=== PATIENT | female | born 1965 | race Caucasian/White ===

== ENCOUNTER 2018-01-24 14:29 | Inpatient (IN) ==
--- NOTE | 2018-01-24 16:37 | Internal Med History&Physical ---
<Ravin Brantley - Last Filed: 01/24/18 18:12> Date of Encounter: 01/24/18 Internal Medicine - H&P: HPI History of present illness: Ms. Lopez is a 52 year old female Internal Medicine - H&P: Meds Atenolol 02/05/15 [History] Benzonatate [Tessalon] 200 mg PO TID PRN #30 capsule 01/09/18 [Rx] GuaiFENesin ER [Mucinex] 1,200 mg PO BID #20 tbbp.12hr 01/09/18 [Rx] Levofloxacin [Levaquin] 750 mg PO DAILY #10 tablet 01/09/18 [Rx] Allergy/AdvReac Type Severity Reaction Status Date / Time No Known Allergies Allergy Verified 01/09/18 13:24 All Systems PM: A 10-system review of systems was performed and is negative for pertinent findings except as documented above in the HPI. - Constitutional Vitals: Temp Pulse Resp BP Pulse Ox 101.4 F H 100 23 136/78 94 01/24/18 17:15 01/24/18 17:15 01/24/18 17:15 01/24/18 17:15 01/24/18 17:15 - Assessment and plan (1) PNA (pneumonia) Current Visit: Yes Status: Acute Qualifiers: Pneumonia type: aspiration pneumonia Aspiration pneumonia type: unspecified Laterality: right Lung location: lower lobe of lung Qualified Code(s): J69.0 - Pneumonitis due to inhalation of food and vomit (2) HTN (hypertension) Current Visit: Yes Status: Chronic Qualifiers: Hypertension type: essential hypertension Qualified Code(s): I10 - Essential (primary) hypertension (3) Sepsis Current Visit: Yes Status: Acute Qualifiers: Sepsis type: sepsis due to unspecified organism Qualified Code(s): A41.9 - Sepsis, unspecified organism (4) Morbid obesity with BMI of 40.0-44.9, adult Current Visit: Yes Status: Chronic - Time Spent With Patient Total time spent is greater than 50% in coordination of care (as documented) at patient's floor/unit and/or counseling patient: - Attending Attestation I examined this patient and my medical decision-making was reviewed with the Resident Physician on 01/24/18. I agree with the documented findings, disposition and treatment plan as described except to the extent set forth below. Ms Lopez is 52 year old female with hx of HTN direct admit due to pneumonia. Pt aspirated popcorn about 6 weeks ago and has had 2 treatments with abx already. Pneumonia recurs. She was evaluated by pulmonary and CT of chest shows post obstructive pneumonia. She is again febrile. She has been admitted for abx and bronchoscopy. Exam alert Comfortable Mucus membranes dry Heart reg - not tachy now Lungs with bibasilar rales. No wheeze abd soft No edema Moves all extremities I/P 1. Asp pneumonia - failed 2 courses of abx. Admit. IV abx. Bronchoscopy. 2. HTN Further diagnoses and plan as above. <Sourav Puente - Last Filed: 01/24/18 22:10> Date of Encounter: 01/24/18 Time of Encounter: 18:08 Internal Medicine - H&P: HPI Chief complaint: pneumonia History of present illness: Ms. Lopez is a 52 year old female with PMHx of hypertension was admitted to the floor because of incidental finding on of post -obstructive pneumonia on her chest CT . Patient endorses it all started about 5 weeks ago i when she accidently aspirated popcorn into her airways. Patient had no symptoms for few weeks, however after that she began to have progressive increasing productive cough. Patient denies any hemoptysis associated with her cough. She denies any history of GERD or any cardiac symptoms like CHF/MT, although she did have a catheterization done in 2005 (which was normal) for her nonspecific chest pain. However, patient has never had any chest pain ever since then. Patient saw a dentist for dental abscess and was given a seven-day course of amoxicillin which helped with her cough symptoms. About 2 weeks ago the symptoms relapsed and patient went to the urgent care, had a chest x-ray which was positive for pneumonia. She was prescribed prednisone, Levaquin, Mucinex and the Tessalon Perles. Patient finished her course of Abx until last Tuesday and her symptoms subsided. However, since Tuesday patient's symptoms relapsed along with chills and shortness of breath. She also endorses having lost 15 pounds in the last 2 weeks, which she endorses due to decreased appetite. She has no family Hx of cancer. She went to her PCP recently, had a chest CT, which showed findings in the lateral basal segment right lower lobe with dense consolidation with concerns for a postobstructive pneumonia likely related to aspirate foreign body . There were also evidence of right pleural effusion. She denies any acute SO, chest pain, palpitations, or any systemic signs like diarrhea, vomiting, nausea, numbenss or tingling in her hands or legs. Past Med Surg Social Fam HX - Past Medical History Medical history: no medical history Psychiatric history: no psych history - Past Surgical History Additional surgical history: 2005 Heart blanca - Social History Smoking Status: Never smoker Smokeless Tobacco Status: No Alcohol use: none Drug use: none - Family History Father Hx Family Cardiac Disorders: Yes Hx Family Endocrine Disorder: Yes All Systems PM: A 10-system review of systems was performed and is negative for pertinent findings except as documented above in the HPI. - Constitutional Exam: General: Alert and oriented. Skin:Normal color, no rash, no lesions. HEENT:Pupils equal, round and reactive. Cardiovascular:Normal S1 & S2, no rubs, murmurs or gallops. No JVD. Pulse regular. Lungs:decreased breath sounds on the Right lung base, no rales or ronchi Abdomen:Soft, no rigidity. Tender to palpation x4 quadrants. No rebound tenderness. Normal bowel sounds x4 quadrants. Extremities:No deformity, no edema or tenderness, no joint swelling or clubbing. Neurological:Normal cognition and motor skills. Pulses:Carotid and radial pulses normal +2. Rest of the physical exam is non contributory. Internal Med - H&P Results - Labs CBC & Chem 7: 01/24/18 17:50 01/24/18 17:50 - Assessment and plan (1) Sepsis Current Visit: Yes Status: Acute Assessment and plan: - Patient met SIRS criteria during admission Temp: 101.4, HR: 100. -likely due to postobstructive pneumonia as evident on chest CT. Patient recently completed 2 rounds of antibiotics witin the last 4 weeks . -Currently on IV Unasyn. - Sputum/ blood cultures are pending. Strep pneumo and Legionella antigen pending. Qualifiers: Sepsis type: sepsis due to unspecified organism Qualified Code(s): A41.9 - Sepsis, unspecified organism (2) PNA (pneumonia) Current Visit: Yes Status: Acute Assessment and plan: - likely aspiration secondary to popcorn aspiration a few weeks ago. Patient met the SIRS criteria on admission (Temp: 101.4, Pulse : 100) -Patient's most recent CTA showed basal segment right lower lobe consolidation with concerns for postobstructive pneumonia - Recently completed 2 rounds of antibiotics. Endorses productive cough along with fevers and chills for the last 7 days. She also had intermittent symptoms even prior to that. -Currently on IV Unasyn. - Scheduled to get bronchoscopy tomorrow because of suspected foreign body aspiration. - Blood/sputum cultures pending, Legionella and strep pneumo Ag pending. Qualifiers: Pneumonia type: aspiration pneumonia Aspiration pneumonia type: unspecified Laterality: right Lung location: lower lobe of lung Qualified Code(s): J69.0 - Pneumonitis due to inhalation of food and vomit (3) Foreign body aspiration Current Visit: Yes Status: Acute Assessment and plan: -Patient endorses that she accidentally ingested popcorn into her airways a few weeks ago. Ever since then she has been having intermittent episodes of productive cough. She also completed 2 rounds of antibiotics which helped with her symptoms temporarily. - Radiographically she was found to have postobstructive pneumonia. Currently on IV Unasyn. -Scheduled to undergo bronchoscopy at AM (4) HTN (hypertension) Current Visit: Yes Status: Chronic Assessment and plan: -Patient has a history of HTN. - Most recent blood pressure was 136/78. -Resume home Amlodipine (10 mg) if BP > 140/90 Qualifiers: Hypertension type: essential hypertension Qualified Code(s): I10 - Essential (primary) hypertension (5) DVT prophylaxis Current Visit: Yes Status: Acute Assessment and plan: SCDs - Time Spent With Patient Total time spent is greater than 50% in coordination of care (as documented) at patient's floor/unit and/or counseling patient:
[2018-01-24 18:19] LABS: Basophils % 0.2 %; Eosinophils % 0.2 %; Hematocrit 38.2 % (35.3-44.9); Hemoglobin 12.4 g/dL (11.5-15.4); Immature Granulocytes % 0.6 % (0-4); Immature Platelets 1.6 % (1.1-6.1); Lymphocytes # 1.4 K/mcL (0.6-4.6); Lymphocytes % 8.9 %; Mean Corpuscular HGB Conc 32.5 g/dL (31.6-35.5); Mean Corpuscular Hemoglobin 28.4 pg (28.0-33.3); Mean Corpuscular Volume 87.4 fL (83.0-100.0); Mean Platelet Volume 9.5 fL (9.4-12.4); Monocytes % 6.4 %; Neutrophils # 13.6 K/mcL (1.6-8.9); Platelet Count 395 K/mcL (140-400); Red Blood Count 4.37 M/mcL (3.82-4.97); Segmented Neutrophils % 83.7 %
[2018-01-24 18:29] LABS: INR 1.5
[2018-01-24 18:32] LABS: Activated Partial Thrombo Time 38.3 Seconds (26.0-36.0); Alanine Aminotransferase 43 Units/L (7-52); Albumin 3.6 g/dL (3.5-5.7); Alkaline Phosphatase 116 Units/L (34-104); Aspartate Amino Transferase 25 Units/L (13-39); BUN/Creatinine Ratio 10 (6-26); Bilirubin,Direct 0.4 mg/dL (0.0-0.2); Bilirubin,Indirect 0.6 mg/dL (0.0-1.2); Blood Urea Nitrogen 8 mg/dL (6-20); Calcium 9.2 mg/dL (8.6-10.3); Carbon Dioxide 21 mEq/L (23-29); Chloride 101 mEq/L (98-107); Globulin 3.5 g/dL (2.4-3.5); Glucose 143 mg/dL (70-105); Osmolality,Calculated 279 (280-300); Potassium 3.6 mEq/L (3.5-5.1); Sodium 134 mEq/L (136-145); Total Protein 7.1 g/dL (6.4-8.9); eGFR For Non-African Americans > 60 (> 60)
[2018-01-24] MEDS: Ampicillin/Sulbactam 1,500 MG in 0.9 % Sodium Chloride Mini Bag 100 ML IVPB SCH (19:16)
[2018-01-24] MEDS ORDERED: Ondansetron 4 MG/2 ML VIAL IVP PRN (21:25)
[2018-01-24] MEDS ORDERED: Ondansetron 4 MG/2 ML VIAL ONE (21:30)
[2018-01-24] MEDS: Acetaminophen 325 MG TABLET PO PRN (21:34)
--- NOTE | 2018-01-24 22:58 | Anesthesia Evaluation PreOp ---
<Elena Fritz - Last Filed: 01/24/18 22:56> Date of Encounter: 01/24/18 - Past History Planned Operation: bronch, foreign body removal Cardiac History: HTN Pulmonary History: Other (post-obstructive aspiration pneumonia (aspiration of popcorn)) [employer] History: Denies Any Significant HX Other Medical History: Other (sepsis, BMI 44) Alcohol Use: none Drug use: none Medications and Allergies Atenolol 50 mg PO BID 02/05/15 [History] Amlodipine Besylate 5 mg PO BID 01/25/18 [History] Allergy/AdvReac Type Severity Reaction Status Date / Time No Known Allergies Allergy Verified 01/25/18 08:22 - Meds/Allergy Pre-op Review Medications Reviewed: Yes Allergies Reviewed: Yes Beta Blockers on Current Med List: Yes (atenolol) Anesthesia Results - Labs 01/24/18 17:50 01/24/18 17:50 - Imaging Additional studies: 01-23-18 CT chest with contrast: IMPRESSION: 1. Findings in the lateral basal segment right lower lobe with dense consolidation as well as areas of apparent bronchial air trapping and cutoff appearance of the bronchus to the lateral basal segment right lower lobe are all in keeping with postobstructive pneumonia, presumably related to aspirated foreign body given the clinical history, though underlying mass lesion is a consideration as well. Bronchoscopic evaluation recommended. CT follow-up to ensure clearing is recommended. 2. Nonspecific nodule or possible colloid cyst mid left thyroid lobe requires follow-up with ultrasound imaging.* 3. Presumed reactive right pleural effusion. 4. Presumed reactive mediastinal and right hilar lymph node enlargement. 5. Possible cholelithiasis versus gallbladder seen and/or sludge. <Santo Soliman - Last Filed: 01/25/18 10:22> Date of Encounter: 01/25/18 Time of Encounter: 10:18 Anesthesia Results - Labs 01/25/18 03:53 01/25/18 03:53 Anesthesia Exam Vital Signs/O2 Sat/Glucose, Most Recent Temp Pulse Resp BP Pulse Ox 100.4 F H 70 20 138/74 94 01/25/18 10:16 01/25/18 10:16 01/25/18 10:16 01/25/18 10:16 01/25/18 10:16 Height: 1.68 m Weight: 123 kg NPO (# of Hours): >8 - HEENT Mallampati: I Teeth: Normal Oral Opening: Greater than 3 - Cardiac Rhythm: Regular - Pulmonary Breath Sounds: right Rhonchi (RLL), bilateral Clear Respiratory Effort: Symmetrical Anesthesia Assess/Plan ASA Score: 3 Anesthetic Plan: General Monitoring Plan: Standard Monitors Recovery Plan: PACU Anes Supervising Prov Stmt: Patient informed and consented. Risks, benefits, and alternatives discussed. Patient wishes to proceed.
--- NOTE | 2018-01-24 23:10 | Sepsis Event Note ---
Sepsis Reassessment Note - Evaluation Sepsis Screen: No Definite Risk Current Stage of Sepsis: ruled out Reason for ruling out sepsis: Patient is afebrile without tachypnea or tachycardia Possible Source of Sepsis: pulmonary - Focused Exam Date of Encounter: 01/24/18 Time of Encounter: 23:52 Vital Signs: Vital Signs Temp Pulse Resp BP Pulse Ox 01/24/18 21:40 102.3 F H 01/24/18 19:12 101.7 F H 95 17 143/75 96 01/24/18 17:15 101.4 F H 100 23 136/78 94 Respiratory Exam: Present: CTA bilaterally Cardiovascular Exam: Present: RRR Capillary Refill: < 2 seconds Peripheral Pulse Strength: 3+ normal Peripheral Pulse Location: Radial Skin Exam: normal turgor
[2018-01-25] MEDS: Ampicillin/Sulbactam 1,500 MG in 0.9 % Sodium Chloride Mini Bag 100 ML IVPB SCH ×5 (00:52→23:47)
[2018-01-25 05:26] LABS: Basophils % 0.2 %; Eosinophils % 0.3 %; Hematocrit 34.6 % (35.3-44.9); Hemoglobin 11.3 g/dL (11.5-15.4); Immature Granulocytes % 0.4 % (0-4); Lymphocytes # 2.5 K/mcL (0.6-4.6); Lymphocytes % 20.3 %; Mean Corpuscular HGB Conc 32.7 g/dL (31.6-35.5); Mean Corpuscular Hemoglobin 28.7 pg (28.0-33.3); Mean Corpuscular Volume 87.8 fL (83.0-100.0); Mean Platelet Volume 9.9 fL (9.4-12.4); Monocytes # 1.3 K/mcL (0.0-1.3); Monocytes % 10.5 %; Neutrophils # 8.3 K/mcL (1.6-8.9); Platelet Count 363 K/mcL (140-400); Red Blood Count 3.94 M/mcL (3.82-4.97); Red Cell Distribution Width 14.2 % (11.5-14.5); Segmented Neutrophils % 68.3 %
[2018-01-25 05:33] LABS: INR 1.5; Prothrombin Time 17.3 Seconds (9.4-12.1)
[2018-01-25 05:47] LABS: BUN/Creatinine Ratio 11 (6-26); Blood Urea Nitrogen 7 mg/dL (6-20); Carbon Dioxide 25 mEq/L (23-29); Chloride 104 mEq/L (98-107); Glucose 105 mg/dL (70-105); Osmolality,Calculated 284 (280-300); Potassium 3.7 mEq/L (3.5-5.1); Sodium 138 mEq/L (136-145); eGFR For Non-African Americans > 60 (> 60)
--- NOTE | 2018-01-25 08:25 | Pulmonology Consult Note ---
<Mir Palma W - Last Filed: 01/25/18 17:03> Date of Encounter: 01/25/18 Medications and Allergies Atenolol 50 mg PO BID 02/05/15 [History] Amlodipine Besylate 5 mg PO BID 01/25/18 [History] Allergy/AdvReac Type Severity Reaction Status Date / Time No Known Allergies Allergy Verified 01/25/18 08:22 All Systems: The remainder of the systems were reviewed and are negative Physical Examination Vital Signs: Vital Signs, Last 4 Hours Temp Pulse Resp BP Pulse Ox 01/25/18 15:36 98.3 F 74 19 132/75 95 01/25/18 13:20 77 20 124/71 95 Results - Laboratory Findings CBC and BMP: 01/25/18 03:53 01/25/18 03:53 PT/INR, D-dimer PT 17.3 Seconds (9.4-12.1) H 01/25/18 03:53 Abnormal lab findings: Abnormal lab results WBC 12.1 K/mcL (4.3-11.1) H 01/25/18 03:53 Hgb 11.3 g/dL (11.5-15.4) L 01/25/18 03:53 Hct 34.6 % (35.3-44.9) L 01/25/18 03:53 PT 17.3 Seconds (9.4-12.1) H 01/25/18 03:53 APTT 38.3 Seconds (26.0-36.0) H 01/24/18 17:50 Direct Bilirubin 0.4 mg/dL (0.0-0.2) H 01/24/18 17:50 Alkaline Phosphatase 116 Units/L (34-104) H 01/24/18 17:50 Albumin/Globulin Ratio 1.0 (1.1-2.2) L 01/24/18 17:50 - Microbiology Findings Microbiology Findings: Microbiology, Last 48 Hours 01/24/18 19:54 Sputum Culture - Final Sputum 01/24/18 17:45 Blood Culture - Preliminary Peripheral Venipuncture Culture is incubating and being continuously monitored for growth. Final report to follow. 01/24/18 17:50 Blood Culture - Preliminary Peripheral Venipuncture Culture is incubating and being continuously monitored for growth. Final report to follow. - Clinical Findings Intake & Output: Intake & Output 01/25/18 01/25/18 01/25/18 07:59 15:59 23:59 Intake Total 100 / 100 200 / 200 Output Total 800 / 800 Balance -700 / -700 200 / 200 Weight 122.9 kg Consult Discharge Plan - Plan Referrals: Qing Benson DO [Primary Care Provider] - - Attending Attestation I examined this patient and my medical decision-making was reviewed with the Resident Physician. I agree with the documented findings, disposition and treatment plan as described except to the extent set forth below. We independently had [id number] contact with the patient Patient seen and examined at bedside Labs, radiology, chart personally reviewed. Impression: Postobstructive pneumonia Possible foreign body aspiration Endobronchial lesion Recs: -Cont IV broad spectrum antimicrobials pending culture results -For the next 48 hours start steroids (prednisone 40 mg daily) -Plan to repeat bronchoscopy on Tuesday it is unclear at this point if there is a benign or malignant tumor in the right lower lobe orifices reflection of epithelialized tissue around a possible aspirated foreign body; interventional pulmonary will evaluate the patient and repeat bronchoscopy at that time -DVT prophylaxis while inpatient I did discuss my findings and plan with the patient and her <AlessioSiena - Last Filed: 01/25/18 19:19> Date of Encounter: 01/25/18 Time of Encounter: 09:00 Assessment and Plan (1) Aspiration pneumonia Current Visit: Yes Status: Acute Postobstructive pneumonia secondary to suspected foreign body aspiration Failure to improve after completing 2 courses of antibiotics (amoxicillin followed by Levaquin) as an outpatient 01/09 CXR: Posterior right basilar consolidation consistent with pneumonia 01/23 CT chest: RLL dense consolidation and bronchial air trapping suggestive of postobstructive PNA; mediastinal and R hilar lymph node enlargement Tmax 102.3 F on day of admission Unasyn infusion started yesterday Bronchoscopy shows RLL atelectasis and lesion; acute mucosal inflammation and mucoid secretions throughout tracheobronchial tree; friable mucosa Plan: Await BAL, biopsy, brushing, culture, cytology, and washing results Prednisone 40 mg Q24H x2 days Anticipating repeat bronchoscopy Tuesday--must be NPO at midnight Continue empiric abx pending culture results Tylenol for fever Qualifiers: Aspiration pneumonia type: unspecified Laterality: right Lung location: lower lobe of lung Qualified Code(s): J69.0 - Pneumonitis due to inhalation of food and vomit (2) Foreign body aspiration Current Visit: Yes Status: Suspected Reported aspiration of popcorn 5 weeks ago Plan: Management as above Qualifiers: Encounter type: subsequent encounter Qualified Code(s): T17.900D - Uns pecified foreign body in respiratory tract, part unspecified causing asphyxiation, subsequent encounter (3) Endobronchial mass Current Visit: Yes Status: Acute Etiology unclear due to mucosal inflammation--tumor (benign versus malignant) versus inflammation surrounding aspirated foreign body Right lower lobe lesion on bronchoscopy Endobronchial biopsy, brushings, and washings obtained--suspect biopsy may not be diagnostic Plan: Await BAL, biopsy, brushing, culture, cytology, and washing results Anticipating repeat bronchoscopy within 48 hours (4) Sepsis Current Visit: Yes Status: Acute Suspected source of infection is pneumonia secondary to aspiration of an organic foreign object Plan: Management per primary team Qualifiers: Sepsis type: sepsis due to unspecified organism Qualified Code(s): A41.9 - Sepsis, unspecified organism (5) HTN (hypertension) Current Visit: Yes Status: Chronic Management per primary team Qualifiers: Hypertension type: essential hypertension Qualified Code(s): I10 - Essential (primary) hypertension History of Present Illness Consult date: 01/25/18 Reason for consult: pneumonia (aspiration) History of present illness: Ms. Lopez is a 52-year-old female with past medical history of hypertension who was admitted to the hospital yesterday for pneumonia with fever after an outpatient pulmonology appointment. Patient aspirated popcorn 5 weeks ago while shopping, reports having a "coughing fit" as well as 1 day of wheezing. 3 weeks ago she was prescribed a course of amoxicillin for a dental infection; after completing antibiotic course she felt a little bit better. She visited urgent care the following week because of increased coughing with sputum production; she was prescribed Levaquin and prednisone. Antibiotic and steroid courses completed 7 days ago and patient reported feeling a little bit better, but this was short-lived and states she felt bad again a couple days later. She visited her primary care provider 2 days ago with complaints of chills and sweats for several days in addition to feeling unwell, primary care provider ordered CT which prompted referral to pulmonology. She reports a 15 pound weight loss over the last 5 weeks with decreased appetite. Admits to nausea last night and one episode of nonbloody emesis containing food she had just eaten. Patient is a never smoker, but is exposed to secondhand smoke from her 's tobacco use. She has had no other hospitalizations related to pneumonia or difficulty breathing. There are no birds or exotic pets in the home. 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 Reports family history of asthma and COPD in her half-sister; patient has no personal history of asthma, COPD, or other lung disease. Past Med Surg Social Fam HX - Past Medical History Medical history: no medical history Psychiatric history: no psych history - Past Surgical History Additional surgical history: 2005 Heart blanca - Social History Smoking Status: Never smoker Smokeless Tobacco Status: No Alcohol use: none Drug use: none - Family History Father Hx Family Cardiac Disorders: Yes Hx Family Endocrine Disorder: Yes All Systems: The remainder of the systems were reviewed and are negative - Constitutional Constitutional: as per HPI, anorexia, fever(s), weight loss - Cardiovascular Cardiovascular: as per HPI, no chest pain, no leg edema, no palpitations - Respiratory Respiratory: as per HPI, cough, wheezing, chest congestion, no hemoptysis, no pain with cough - Gastrointestinal Gastrointestinal: as per HPI, nausea, vomiting Physical Examination Vital Signs: Vital Signs, Last 4 Hours Temp Pulse Resp BP Pulse Ox 01/25/18 07:47 99.1 F 82 22 123/70 95 General appearance: no acute distress, alert Eyes: nonicteric ENT: oropharynx moist Neck: supple Effort: other (Normal effort, paroxysmal coughing) Inspection: normal Auscultation: bilateral: rhonchi (Diffuse), other (No wheezing) Cardiovascular: regular rate and rhythm Gastrointestinal: normoactive bowel sounds, soft, non-tender Integumentary: normal Extremities: no cyanosis, no edema, no clubbing, pink and warm, pulses normal Musculoskeletal: no deformities Gait: normal posture normal mental status, non-focal exam, pupils equal and round, CN II-XII normal mood appropriate, affect normal Results - Laboratory Findings CBC and BMP: 01/25/18 03:53 01/25/18 03:53 PT/INR, D-dimer PT 17.3 Seconds (9.4-12.1) H 01/25/18 03:53 Abnormal lab findings: Abnormal lab results WBC 12.1 K/mcL (4.3-11.1) H 01/25/18 03:53 Hgb 11.3 g/dL (11.5-15.4) L 01/25/18 03:53 Hct 34.6 % (35.3-44.9) L 01/25/18 03:53 PT 17.3 Seconds (9.4-12.1) H 01/25/18 03:53 APTT 38.3 Seconds (26.0-36.0) H 01/24/18 17:50 Direct Bilirubin 0.4 mg/dL (0.0-0.2) H 01/24/18 17:50 Alkaline Phosphatase 116 Units/L (34-104) H 01/24/18 17:50 Albumin/Globulin Ratio 1.0 (1.1-2.2) L 01/24/18 17:50 - Microbiology Findings Microbiology Findings: Microbiology, Last 48 Hours 01/24/18 19:54 Sputum Culture - Final Sputum 01/24/18 17:45 Blood Culture - Preliminary Peripheral Venipuncture Culture is incubating and being continuously monitored for growth. Final report to follow. 01/24/18 17:50 Blood Culture - Preliminary Peripheral Venipuncture Culture is incubating and being continuously monitored for growth. Final report to follow. - Clinical Findings Intake & Output: Intake & Output 01/24/18 01/25/18 01/25/18 23:59 07:59 15:59 Intake Total 100 / 100 100 / 100 Output Total 750 / 750 800 / 800 Balance -650 / -650 -700 / -700 Weight 123.491 kg 122.9 kg
--- NOTE | 2018-01-25 10:03 | Internal Med Progress Note ---
<Ravin Brantley - Last Filed: 01/25/18 14:53> Hospitalist Progress Note - Encounter Date of Encounter: 01/25/18 - Exam Vitals: Temp Pulse Resp BP Pulse Ox 98.7 F 77 20 124/71 95 01/25/18 12:50 01/25/18 13:20 01/25/18 13:20 01/25/18 13:20 01/25/18 13:20 - Assessment and Plan (1) PNA (pneumonia) Current Visit: Yes Status: Acute (2) HTN (hypertension) Current Visit: Yes Status: Chronic (3) Sepsis Current Visit: Yes Status: Acute (4) Foreign body aspiration Current Visit: Yes Status: Acute (5) DVT prophylaxis Current Visit: Yes Status: Acute - Time Spent with Patient Total time spent is greater than 50% in coordination of care (as documented) at patient's floor/unit and/or counseling patient: Internal Medicine: Result - Labs CBC & Chem 7: 01/25/18 03:53 01/25/18 03:53 Labs: Short CBC 01/24/18 01/25/18 Range/Units 17:50 03:53 WBC 16.2 H 12.1 H (4.3-11.1) K/mcL Hgb 12.4 11.3 L (11.5-15.4) g/dL Hct 38.2 34.6 L (35.3-44.9) % Plt Count 395 363 (140-400) K/mcL Neutrophils # 13.6 H 8.3 (1.6-8.9) K/mcL BMP 01/24/18 01/25/18 17:50 03:53 Sodium 134 L 138 Potassium 3.6 3.7 Chloride 101 104 Carbon Dioxide 21 L 25 BUN 8 7 Creatinine 0.78 0.66 Glucose 143 H 105 Calcium 9.2 9.0 Liver Function 01/24/18 Range/Units 17:50 Total Bilirubin 1.0 (0.3-1.0) mg/dL Direct Bilirubin 0.4 H (0.0-0.2) mg/dL AST 25 (13-39) Units/L ALT 43 (7-52) Units/L Alkaline Phosphatase 116 H (34-104) Units/L Albumin 3.6 (3.5-5.7) g/dL - ABG Interpretation ABG results: PT/INR, D-dimer PT 17.3 Seconds (9.4-12.1) H 01/25/18 03:53 Consult Discharge Plan - Plan Referrals: Qing Benson DO [Primary Care Provider] - - Attending Attestation I examined this patient and my medical decision-making was reviewed with the Resident Physician on 01/25/18. I agree with the documented findings, disposition and treatment plan as described except to the extent set forth below. Ms Lopez is currently admitted for postobstructive pneumonia failed outpatient treatment. She remains moderate to high risk due to potential for worsening cli nical status. Ms Lopez is awaiting bronch. She is more congested today. Still with low grade fever. No GI issues. Thirsty now. Exam alert Comfortable at this time Mucus membranes dry Heart reg and not tachy Coarse breath sounds but no wheeze abd soft No edema I/P 1. Pneumonia - post obstructive 2. HTN Further diagnoses and plan as above. <Sourav Puente - Last Filed: 01/25/18 15:42> Hospitalist Progress Note - Encounter Date of Encounter: 01/25/18 Time of Encounter: 08:30 - Subjective Interval History: Seen patient at the bedside. She endorses no acute distress. She continues to have episodes of cough especially when she takes a deep breath. Endorses no bloody sputum. Was febrile last evening but as of this morning she her most recent temperature was 99.1. Continues to be on 1500 mg Unasyn for her a postobstructive pneumonia which was found on chest CT 2 days ago. Patient underwent bronchoscopy this morning, results pending. - Exam Vitals: Temp Pulse Resp BP Pulse Ox 99.1 F 82 22 123/70 95 01/25/18 07:47 01/25/18 07:47 01/25/18 07:47 01/25/18 07:47 01/25/18 07:47 Exam: General: Alert and oriented. Skin:Normal color, no rash, no lesions. HEENT:Pupils equal, round and reactive. Cardiovascular:Normal S1 & S2, no rubs, murmurs or gallops. No JVD. Pulse regular. Lungs:decreased breath sounds on the Right lung base, no rales or ronchi Abdomen:Soft, no rigidity. Tender to palpation x4 quadrants. No rebound tenderness. Normal bowel sounds x4 quadrants. Extremities:No deformity, no edema or tenderness, no joint swelling or clubbing. Neurological:Normal cognition and motor skills. Pulses:Carotid and radial pulses normal +2. Rest of the physical exam is non contributory. - Assessment and Plan (1) Sepsis Current Visit: Yes Status: Acute Assessment and Plan: - Currently resolved. She met SIRS criteria during admission Temp: 101.4, HR: 100. -likely due to postobstructive pneumonia as evident on chest CT. Patient recently completed 2 rounds of antibiotics witin the last 4 weeks . -Currently on IV Unasyn. - Sputum/ blood cultures are pending. Strep pneumo and Legionella antigen pending. (2) PNA (pneumonia) Current Visit: Yes Status: Acute Assessment and Plan: - likely aspiration secondary to popcorn aspiration a few weeks ago. Patient met the SIRS criteria on admission (Temp: 101.4, Pulse : 100) -Patient's most recent CTA showed basal segment right lower lobe consolidation with concerns for postobstructive pneumonia - Recently completed 2 rounds of antibiotics. Endorses productive cough along with fevers and chills for the last 7 days. She also had intermittent symptoms even prior to that. -Currently on day 2 IV Unasyn. - Currently s/p Bronchoscopy . Repeat Bronchoscopy on Tuesday. - Blood/sputum cultures pending, Legionella and strep pneumo Ag pending. (3) Foreign body aspiration Current Visit: Yes Status: Acute Assessment and Plan: -Patient endorses that she accidentally ingested popcorn into her airways a few weeks ago. Ever since then she has been having intermittent episodes of productive cough. She also completed 2 rounds of antibiotics which helped with her symptoms temporarily. - Radiographically she was found to have postobstructive pneumonia. Currently on day 2 of IV Unasyn. -Scheduled to undergo repeat bronchoscopy on Tuesday due to swelling/inflammation of the airways (4) HTN (hypertension) Current Visit: Yes Status: Chronic Assessment and Plan: -Patient has a history of HTN. -Resume home Amlodipine (10 mg) if BP > 140/90 (5) DVT prophylaxis Current Visit: Yes Status: Acute Assessment and Plan: SCDs - Time Spent with Patient Total time spent is greater than 50% in coordination of care (as documented) at patient's floor/unit and/or counseling patient: Internal Medicine: Result - Labs CBC & Chem 7: 01/25/18 03:53 01/25/18 03:53 Labs: Short CBC 01/24/18 01/25/18 Range/Units 17:50 03:53 WBC 16.2 H 12.1 H (4.3-11.1) K/mcL Hgb 12.4 11.3 L (11.5-15.4) g/dL Hct 38.2 34.6 L (35.3-44.9) % Plt Count 395 363 (140-400) K/mcL Neutrophils # 13.6 H 8.3 (1.6-8.9) K/mcL BMP 01/24/18 01/25/18 17:50 03:53 Sodium 134 L 138 Potassium 3.6 3.7 Chloride 101 104 Carbon Dioxide 21 L 25 BUN 8 7 Creatinine 0.78 0.66 Glucose 143 H 105 Calcium 9.2 9.0 Liver Function 01/24/18 Range/Units 17:50 Total Bilirubin 1.0 (0.3-1.0) mg/dL Direct Bilirubin 0.4 H (0.0-0.2) mg/dL AST 25 (13-39) Units/L ALT 43 (7-52) Units/L Alkaline Phosphatase 116 H (34-104) Units/L Albumin 3.6 (3.5-5.7) g/dL - ABG Interpretation ABG results: PT/INR, D-dimer PT 17.3 Seconds (9.4-12.1) H 01/25/18 03:53 <Ravin Brantley - Last Filed: 01/25/18 14:53> (1) PNA (pneumonia) Qualifiers: Pneumonia type: aspiration pneumonia Aspiration pneumonia type: unspecified Laterality: right Lung location: lower lobe of lung Qualified Code(s): J69.0 - Pneumonitis due to inhalation of food and vomit (2) HTN (hypertension) Qualifiers: Hypertension type: essential hypertension Qualified Code(s): I10 - Essential (primary) hypertension (3) Sepsis Qualifiers: Sepsis type: sepsis due to unspecified organism Qualified Code(s): A41.9 - Sepsis, unspecified organism (4) Foreign body aspiration Qualifiers: Encounter type: subsequent encounter Qualified Code(s): T17.900D - Unspecified foreign body in respiratory tract, part unspecified causing asphyxiation, subsequent encounter <Sourav Puente - Last Filed: 01/25/18 15:42> (1) Sepsis Qualifiers: Sepsis type: sepsis due to unspecified organism Qualified Code(s): A41.9 - Sepsis, unspecified organism (2) PNA (pneumonia) Qualifiers: Pneumonia type: aspiration pneumonia Aspiration pneumonia type: unspecified Laterality: right Lung location: lower lobe of lung Qualified Code(s): J69.0 - Pneumonitis due to inhalation of food and vomit (3) Foreign body aspiration Qualifiers: Encounter type: subsequent encounter Qualified Code(s): T17.900D - Unspecified foreign body in respiratory tract, part unspecified causing asphyxiation, subsequent encounter (4) HTN (hypertension) Qualifiers: Hypertension type: essential hypertension Qualified Code(s): I10 - Essential (primary) hypertension
[2018-01-25] MEDS ORDERED: *HR* FentaNYL (PF) 100 MCG/2 ML VIAL ONE (11:11)
[2018-01-25] MEDS ORDERED: Lidocaine -MPF 2% 2 ML VIAL ONE (11:12)
[2018-01-25] MEDS ORDERED: Lidocaine -MPF 4% 5 ML AMPUL ONE (11:13)
[2018-01-25] MEDS ORDERED: *HR* Propofol 200 MG/20 ML VIAL IVP ONE (11:13)
[2018-01-25] MEDS ORDERED: *HR* Succinylcholine 200 MG/10 ML VIAL IVP ONE (11:16)
[2018-01-25] MEDS ORDERED: Dexamethasone 4 MG/ML VIAL ONE (11:22)
[2018-01-25] MEDS ORDERED: Ondansetron 4 MG/2 ML VIAL ONE (11:22)
[2018-01-25] MEDS ORDERED: *HR* Labetalol 20 MG/4 ML SYRINGE IVP PRN (11:34)
[2018-01-25] MEDS ORDERED: *HR* OxyCODONE Immed Rel 5 MG TABLET PO PRN (11:34)
[2018-01-25] MEDS ORDERED: *HR* Promethazine 25 MG/ML VIAL IVP PRN (11:34)
[2018-01-25] MEDS: Acetaminophen 325 MG TABLET PO PRN (12:13)
--- NOTE | 2018-01-25 12:47 | Anesthesia Evaluation Post Op ---
Date of Encounter: 01/25/18 Time of Encounter: 12:46 - Vital Signs Vital Signs: Vital Signs/O2 Sat, Most Current Temp Pulse Resp BP Pulse Ox 102 F H 84 16 152/82 94 01/25/18 12:20 01/25/18 12:35 01/25/18 12:35 01/25/18 12:35 01/25/18 12:35 - Lungs Lungs: Clear Ascult./Percussion - Airway Airway: Non-obstructed - Cardiovascular Regular Rate - Mental Status Mental Status: Alert & Oriented, Answers Appropriately - Pain Pain Scale: 0 Pain Scale used: Numeric (1 - 10) - Nausea Vomiting Nausea Vomiting: Not Present - Hydration Hydration: Ice chips, Has not voided - Discharge PostOp Status: Transfer Patient to floor
[2018-01-25] MEDS ORDERED: *HR* EPINEPHrine 1 MG/10 ML SYRINGE ONE (14:12)
[2018-01-26] MEDS: Ampicillin/Sulbactam 1,500 MG in 0.9 % Sodium Chloride Mini Bag 100 ML IVPB SCH ×4 (05:52→23:55)
[2018-01-26 06:14] LABS: Basophils % 0.1 %; Hematocrit 37.3 % (35.3-44.9); Hemoglobin 11.8 g/dL (11.5-15.4); Immature Granulocytes % 0.6 % (0-4); Lymphocytes # 1.4 K/mcL (0.6-4.6); Lymphocytes % 10.4 %; Mean Corpuscular HGB Conc 31.6 g/dL (31.6-35.5); Mean Corpuscular Hemoglobin 27.8 pg (28.0-33.3); Mean Corpuscular Volume 87.8 fL (83.0-100.0); Mean Platelet Volume 9.1 fL (9.4-12.4); Monocytes # 0.6 K/mcL (0.0-1.3); Monocytes % 4.7 %; Neutrophils # 11.6 K/mcL (1.6-8.9); Platelet Count 414 K/mcL (140-400); Red Blood Count 4.25 M/mcL (3.82-4.97); Red Cell Distribution Width 14.1 % (11.5-14.5); Segmented Neutrophils % 84.2 %
[2018-01-26 06:39] LABS: BUN/Creatinine Ratio 12 (6-26); Blood Urea Nitrogen 7 mg/dL (6-20); Calcium 9.3 mg/dL (8.6-10.3); Carbon Dioxide 24 mEq/L (23-29); Chloride 105 mEq/L (98-107); Glucose 132 mg/dL (70-105); Osmolality,Calculated 286 (280-300); Potassium 4.1 mEq/L (3.5-5.1); Sodium 138 mEq/L (136-145); eGFR For Non-African Americans > 60 (> 60)
--- NOTE | 2018-01-26 07:06 | Pulmonology Progress Note ---
Date of Encounter: 01/26/18 Time of Encounter: 07:06 Assessment and Plan (1) Post-obstructive pneumonia due to foreign body aspiration Current Visit: Yes Status: Acute Status post bronchoscopy yesterday there is evidence of endobronchial lesion unclear to me if this represents epithelialized tissue surrounding a foreign body or more likely an endobronchial tumor either malignant or benign. Pathology results pending from initial evaluation. Recommend repeat bronchoscopy tomorrow keep nothing by mouth at midnight Continue IV antimicrobials and will start steroids by mouth DVT prophylaxis while inpatient less contraindication arises (2) Endobronchial mass Current Visit: Yes Status: Acute Subjective Principal diagnosis: Pneumonia Interval history: No events overnight. No untoward effects status post bronchoscopy. Says that she is feeling better while she is on antibiotics. She states that she did not receive a dose of prednisone yesterday Objective PUL Vital signs: Last Vital Signs Temp 97.9 F 01/26/18 03:44 Pulse 66 01/26/18 03:44 Resp 14 01/26/18 03:44 BP 122/75 01/26/18 03:44 Pulse Ox 95 01/26/18 03:44 General appearance: no acute distress Eyes: nonicteric Effort: normal Auscultation: left: clear, right: diminished breath sounds Cardiovascular: regular rate and rhythm Gastrointestinal: normoactive bowel sounds Integumentary: normal Extremities: no cyanosis, no edema Musculoskeletal: no deformities normal mental status, non-focal exam mood appropriate Results - Laboratory Findings CBC and BMP: 01/26/18 05:53 01/26/18 05:53 PT/INR, D-dimer PT 17.3 Seconds (9.4-12.1) H 01/25/18 03:53 Abnormal lab findings: Abnormal lab results WBC 13.8 K/mcL (4.3-11.1) H 01/26/18 05:53 MCH 27.8 pg (28.0-33.3) L 01/26/18 05:53 Plt Count 414 K/mcL (140-400) H 01/26/18 05:53 MPV 9.1 fL (9.4-12.4) L 01/26/18 05:53 Neutrophils # 11.6 K/mcL (1.6-8.9) H 01/26/18 05:53 PT 17.3 Seconds (9.4-12.1) H 01/25/18 03:53 APTT 38.3 Seconds (26.0-36.0) H 01/24/18 17:50 Creatinine 0.59 mg/dL (0.60-1.20) L 01/26/18 05:53 Glucose 132 mg/dL (70-105) H 01/26/18 05:53 Direct Bilirubin 0.4 mg/dL (0.0-0.2) H 01/24/18 17:50 Alkaline Phosphatase 116 Units/L (34-104) H 01/24/18 17:50 Albumin/Globulin Ratio 1.0 (1.1-2.2) L 01/24/18 17:50 - Microbiology Findings Microbiology Findings: Microbiology, Last 48 Hours 01/25/18 18:27 Streptococcus pneumoniae Antigen (M - Final Urine,Catheterized 01/25/18 18:27 Legionella Antigen - Final Urine,Catheterized 01/24/18 19:54 Sputum Culture - Final Sputum 01/24/18 17:45 Blood Culture - Preliminary Peripheral Venipuncture Culture is incubating and being continuously monitored for growth. Final report to follow. 01/24/18 17:50 Blood Culture - Preliminary Peripheral Venipuncture Culture is incubating and being continuously monitored for growth. Final report to follow. - Clinical Findings Intake & Output: Intake & Output 01/25/18 01/25/18 01/26/18 15:59 23:59 07:59 Intake Total 200 / 200 100 / 100 100 / 100 Output Total 700 / 700 300 / 300 Balance 200 / 200 -600 / -600 -200 / -200 Weight 123.2 kg Consult Discharge Plan - Plan Referrals: Qing Benson DO [Primary Care Provider] -
[2018-01-26] MEDS ORDERED: predniSONE 20 MG TABLET PO ONE (07:25)
[2018-01-26 09:52] LABS: Appearance of Body Fluid Cloudy (Clear); Source of Body Fluid RIGHT LOWER LOBE LUN; Volume of Body Fluid 9 mL
--- NOTE | 2018-01-26 10:30 | Internal Med Progress Note ---
<Sourav Puente - Last Filed: 01/26/18 17:18> Hospitalist Progress Note - Encounter Date of Encounter: 01/26/18 Time of Encounter: 10:00 - Subjective Interval History: 01/26 Seeing patient the bedside today. She endorses no acute distress. Patient continues to have productive sputum, endorses no chest pain or palpitations. S he is scheduled to get a her repeat bronchoscopy tomorrow morning. Her BAL from yesterday's bronchoscopy is still. 01/25 Seen patient at the bedside. She endorses no acute distress. She continues to have episodes of cough especially when she takes a deep breath. Endorses no bloody sputum. Was febrile last evening but as of this morning she her most recent temperature was 99.1. Continues to be on 1500 mg Unasyn for her a postobstructive pneumonia which was found on chest CT 2 days ago. Patient underwent bronchoscopy this morning, results pending. - Exam Vitals: Temp Pulse Resp BP Pulse Ox 97.7 F 59 20 121/69 96 01/26/18 07:48 01/26/18 07:48 01/26/18 07:48 01/26/18 07:48 01/26/18 07:48 Exam: General: Alert and oriented. Skin:Normal color, no rash, no lesions. HEENT:Pupils equal, round and reactive. Cardiovascular:Normal S1 & S2, no rubs, murmurs or gallops. No JVD. Pulse regular. Lungs:decreased breath sounds on the Right lung base, no rales or ronchi Abdomen:Soft, no rigidity. Tender to palpation x4 quadrants. No rebound tenderness. Normal bowel sounds x4 quadrants. Extremities:No deformity, no edema or tenderness, no joint swelling or clubbing. Neurological:Normal cognition and motor skills. Pulses:Carotid and radial pulses normal +2. Rest of the physical exam is non contributory. - Assessment and Plan (1) Sepsis Current Visit: Yes Status: Acute Assessment and Plan: - Currently resolved. She met SIRS criteria during admission Temp: 101.4, HR: 100. -likely due to postobstructive pneumonia as evident on chest CT. Patient recently completed 2 rounds of antibiotics witin the last 4 weeks . -Strep pneumo and Legionella antigen negative -Currently on day 3 IV Unasyn. - blood cultures are pending. (2) PNA (pneumonia) Current Visit: Yes Status: Acute Assessment and Plan: - likely aspiration secondary to popcorn aspiration a few weeks ago. Patient met the SIRS criteria on admission (Temp: 101.4, Pulse : 100) -Patient's most recent CTA showed basal segment right lower lobe consolidation with concerns for postobstructive pneumonia - Recently completed 2 rounds of antibiotics. Endorses productive cough along with fevers and chills for the last 7 days. She also had intermittent symptoms even prior to that. Strep pneumo and Legionella antigen negative. -Currently on day 3 IV Unasyn. - Currently s/p Bronchoscopy . Repeat Bronchoscopy tomorrow. - Blood/sputum cultures pending, (3) Foreign body aspiration Current Visit: Yes Status: Suspected Assessment and Plan: -Patient endorses that she accidentally ingested popcorn into her airways a few weeks ago. Ever since then she has been having intermittent episodes of productive cough. She also completed 2 rounds of antibiotics which helped with her symptoms temporarily. - Radiographically she was found to have postobstructive pneumonia. Currently on day 2 of IV Unasyn. -Scheduled to undergo repeat bronchoscopy on Tuesday due to swelling/inflammation of the airways (4) HTN (hypertension) Current Visit: Yes Status: Chronic Assessment and Plan: -Patient has a history of HTN. -Resume home Amlodipine (10 mg) if BP > 140/90 (5) DVT prophylaxis Current Visit: Yes Status: Acute Assessment and Plan: SCDs - Time Spent with Patient Total time spent is greater than 50% in coordination of care (as documented) at patient's floor/unit and/or counseling patient: Internal Medicine: Result - Labs CBC & Chem 7: 01/26/18 05:53 01/26/18 05:53 Labs: Short CBC 01/26/18 Range/Units 05:53 WBC 13.8 H (4.3-11.1) K/mcL Hgb 11.8 (11.5-15.4) g/dL Hct 37.3 (35.3-44.9) % Plt Count 414 H (140-400) K/mcL Neutrophils # 11.6 H (1.6-8.9) K/mcL BMP 01/26/18 05:53 Sodium 138 Potassium 4.1 Chloride 105 Carbon Dioxide 24 BUN 7 Creatinine 0.59 L Glucose 132 H Calcium 9.3 - ABG Interpretation ABG results: PT/INR, D-dimer PT 17.3 Seconds (9.4-12.1) H 01/25/18 03:53 Consult Discharge Plan - Plan Referrals: Qing Benson, DO [Primary Care Provider] - (Appointment has been requested. Our offices will call you with an appointment time and date) <Ravin Brantley - Last Filed: 01/26/18 17:39> Hospitalist Progress Note - Encounter Date of Encounter: 01/26/18 - Exam Vitals: Temp Pulse Resp BP Pulse Ox 97.8 F 79 19 127/72 96 01/26/18 15:43 01/26/18 15:43 01/26/18 15:43 01/26/18 15:43 01/26/18 15:43 - Assessment and Plan (1) PNA (pneumonia) Current Visit: Yes Status: Acute (2) HTN (hypertension) Current Visit: Yes Status: Chronic (3) Sepsis Current Visit: Yes Status: Resolved (4) Foreign body aspiration Current Visit: Yes Status: Suspected (5) DVT prophylaxis Current Visit: Yes Status: Acute (6) Morbid obesity with BMI of 40.0-44.9, adult Current Visit: Yes Status: Chronic - Time Spent with Patient Total time spent is greater than 50% in coordination of care (as documented) at patient's floor/unit and/or counseling patient: Internal Medicine: Result - Labs CBC & Chem 7: 01/26/18 05:53 01/26/18 05:53 Labs: Short CBC 01/26/18 Range/Units 05:53 WBC 13.8 H (4.3-11.1) K/mcL Hgb 11.8 (11.5-15.4) g/dL Hct 37.3 (35.3-44.9) % Plt Count 414 H (140-400) K/mcL Neutrophils # 11.6 H (1.6-8.9) K/mcL BMP 01/26/18 05:53 Sodium 138 Potassium 4.1 Chloride 105 Carbon Dioxide 24 BUN 7 Creatinine 0.59 L Glucose 132 H Calcium 9.3 - ABG Interpretation ABG results: PT/INR, D-dimer PT 17.3 Seconds (9.4-12.1) H 01/25/18 03:53 <KwameSourav - Last Filed: 01/26/18 17:18> (1) Sepsis Qualifiers: Sepsis type: sepsis due to unspecified organism Qualified Code(s): A41.9 - Sepsis, unspecified organism (2) PNA (pneumonia) Qualifiers: Pneumonia type: aspiration pneumonia Aspiration pneumonia type: unspecified Laterality: right Lung location: lower lobe of lung Qualified Code(s): J69.0 - Pneumonitis due to inhalation of food and vomit (3) Foreign body aspiration Qualifiers: Encounter type: subsequent encounter Qualified Code(s): T17.900D - Unspecified foreign body in respiratory tract, part unspecified causing asphyxi ation, subsequent encounter (4) HTN (hypertension) Qualifiers: Hypertension type: essential hypertension Qualified Code(s): I10 - Essential (primary) hypertension <Ravin Brantley - Last Filed: 01/26/18 17:39> (1) PNA (pneumonia) Qualifiers: Pneumonia type: aspiration pneumonia Aspiration pneumonia type: unspecified Laterality: right Lung location: lower lobe of lung Qualified Code(s): J69.0 - Pneumonitis due to inhalation of food and vomit (2) HTN (hypertension) Qualifiers: Hypertension type: essential hypertension Qualified Code(s): I10 - Essential (primary) hypertension (3) Sepsis Qualifiers: Sepsis type: sepsis due to unspecified organism Qualified Code(s): A41.9 - Sepsis, unspecified organism (4) Foreign body aspiration Qualifiers: Encounter type: subsequent encounter Qualified Code(s): T17.900D - Unspecifie d foreign body in respiratory tract, part unspecified causing asphyxiation, subsequent encounter
--- NOTE | 2018-01-26 22:18 | Anesthesia Evaluation PreOp ---
<Elena Fritz - Last Filed: 01/26/18 22:16> Date of Encounter: 01/26/18 - Past History Planned Operation: bronch with tumor debulking, poss balloon dilation Cardiac History: HTN Pulmonary History: Other (post-obstructive pneumonia (s/p bronchoscopy 01-25-18); possible endobronchial tumor per bronchoscopy 01-25-18) [employer] [address] [employer] History: Denies Any Significant HX Other Medical History: Other (sepsis, BMI 44) Anesthesia History: No Prior Anesthetic Complications Alcohol Use: none Drug use: none Medications and Allergies Atenolol 50 mg PO BID 02/05/15 [History] Amlodipine Besylate 5 mg PO BID 01/25/18 [History] Allergy/AdvReac Type Severity Reaction Status Date / Time No Known Allergies Allergy Verified 01/25/18 08:22 - Meds/Allergy Pre-op Review Medications Reviewed: Yes Allergies Reviewed: Yes Beta Blockers on Current Med List: Yes (atenolol) If Beta Blockers taken, Date/Time (Last Dose taken): 01-26-18 atenolol at 20:20 Anesthesia Results - Labs 01/26/18 05:53 01/26/18 05:53 Anesthesia Exam Last Vital Signs Temp 98.0 F 01/26/18 19:28 Pulse 72 01/26/18 19:28 Resp 16 01/26/18 19:28 BP 118/68 01/26/18 19:28 Pulse Ox 96 01/26/18 19:28 Weight: 123 kg - HEENT Pupil (Motor): Pupils equal, EOMI Mallampati: I Teeth: Normal Oral Opening: Greater than 3 - [employer] [employer] LOC: Oriented - Cardiac Rhythm: Regular Anesthesia Assess/Plan ASA Score: 3 Anesthetic Plan: General Monitoring Plan: Standard Monitors Recovery Plan: PACU <Santo Soliman - Last Filed: 01/27/18 10:24> Date of Encounter: 01/27/18 Time of Encounter: 10:22 Anesthesia Results - Labs 01/27/18 05:20 01/27/18 05:20 Anesthesia Exam Vital Signs/O2 Sat, Most Current Temp Pulse Resp BP Pulse Ox 97.6 F 69 16 162/79 96 01/27/18 10:08 01/27/18 10:08 01/27/18 10:08 01/27/18 10:08 01/27/18 10:08 - Pulmonary Breath Sounds: bilateral Clear Respiratory Effort: Symmetrical Anes Supervising Prov Stmt: Patient informed and consented. Risks, benefits, and alternatives discussed. Patient wishes to proceed.
[2018-01-27 05:55] LABS: Basophils % 0.1 %; Eosinophils % 0.1 %; Hematocrit 33.7 % (35.3-44.9); Hemoglobin 10.7 g/dL (11.5-15.4); Immature Granulocytes % 0.7 % (0-4); Lymphocytes % 19.5 %; Mean Corpuscular HGB Conc 31.8 g/dL (31.6-35.5); Mean Corpuscular Hemoglobin 28.5 pg (28.0-33.3); Mean Corpuscular Volume 89.9 fL (83.0-100.0); Mean Platelet Volume 9.5 fL (9.4-12.4); Monocytes # 0.8 K/mcL (0.0-1.3); Monocytes % 5.5 %; Neutrophils # 11.2 K/mcL (1.6-8.9); Platelet Count 430 K/mcL (140-400); Red Blood Count 3.75 M/mcL (3.82-4.97); Red Cell Distribution Width 14.3 % (11.5-14.5); Segmented Neutrophils % 74.1 %
[2018-01-27] MEDS: Ampicillin/Sulbactam 1,500 MG in 0.9 % Sodium Chloride Mini Bag 100 ML IVPB SCH ×2 (06:00→12:46)
[2018-01-27 06:04] LABS: INR 1.2; Prothrombin Time 13.9 Seconds (9.4-12.1)
[2018-01-27 06:12] LABS: BUN/Creatinine Ratio 16 (6-26); Blood Urea Nitrogen 10 mg/dL (6-20); Calcium 8.9 mg/dL (8.6-10.3); Carbon Dioxide 27 mEq/L (23-29); Chloride 107 mEq/L (98-107); Glucose 113 mg/dL (70-105); Osmolality,Calculated 290 (280-300); Potassium 4.1 mEq/L (3.5-5.1); Sodium 140 mEq/L (136-145); eGFR For Non-African Americans > 60 (> 60)
--- NOTE | 2018-01-27 08:53 | Internal Med Progress Note ---
Hospitalist Progress Note - Encounter Date of Encounter: 01/27/18 - Subjective Interval History: 01/26 Seeing patient the bedside today. She endorses no acute distress. Patient c ontinues to have productive sputum, endorses no chest pain or palpitations. She is scheduled to get a her repeat bronchoscopy tomorrow morning. Her BAL from yesterday's bronchoscopy is still. 01/25 Seen patient at the bedside. She endorses no acute distress. She continues to have episodes of cough especially when she takes a deep breath. Endorses no bloody sputum. Was febrile last evening but as of this morning she her most recent temperature was 99.1. Continues to be on 1500 mg Unasyn for her a postobstructive pneumonia which was found on chest CT 2 days ago. Patient underwent bronchoscopy this morning, results pending. - Exam Vitals: Temp Pulse Resp BP Pulse Ox 97.5 F L 53 14 124/78 96 01/27/18 02:56 01/27/18 02:56 01/27/18 02:56 01/27/18 02:56 01/27/18 02:56 - Assessment and Plan (1) PNA (pneumonia) Current Visit: Yes Status: Acute (2) HTN (hypertension) Current Visit: Yes Status: Chronic (3) Sepsis Current Visit: Yes Status: Resolved (4) Morbid obesity with BMI of 40.0-44.9, adult Current Visit: Yes Status: Chronic (5) Foreign body aspiration Current Visit: Yes Status: Suspected (6) DVT prophylaxis Current Visit: Yes Status: Acute - Time Spent with Patient Total time spent is greater than 50% in coordination of care (as documented) at patient's floor/unit and/or counseling patient: Internal Medicine: Result - Labs CBC & Chem 7: 01/27/18 05:20 01/27/18 05:20 Labs: Short CBC 01/27/18 Range/Units 05:20 WBC 15.2 H (4.3-11.1) K/mcL Hgb 10.7 L (11.5-15.4) g/dL Hct 33.7 L (35.3-44.9) % Plt Count 430 H (140-400) K/mcL Neutrophils # 11.2 H (1.6-8.9) K/mcL BMP 01/27/18 05:20 Sodium 140 Potassium 4.1 Chloride 107 Carbon Dioxide 27 BUN 10 Creatinine 0.62 Glucose 113 H Calcium 8.9 - ABG Interpretation ABG results: PT/INR, D-dimer PT 13.9 Seconds (9.4-12.1) H 01/27/18 05:20 Consult Discharge Plan - Plan Referrals: Qing Benson DO [Primary Care Provider] - (Appointment has been requested. Our offices will call you with an appointment time and date) (1) PNA (pneumonia) Qualifiers: Pneumonia type: aspiration pneumonia Aspiration pneumonia type: unspecified Laterality: right Lung location: lower lobe of lung Qualified Code(s): J69.0 - Pneumonitis due to inhalation of food and vomit (2) HTN (hypertension) Qualifiers: Hypertension type: essential hypertension Qualified Code(s): I10 - Essential (primary) hypertension (3) Sepsis Qualifiers: Sepsis type: sepsis due to unspecified organism Qualified Code(s): A41.9 - Sepsis, unspecified organism (5) Foreign body aspiration Qualifiers: Encounter type: subsequent encounter Qualified Code(s): T17.900D - Unspecified foreign body in respiratory tract, part unspecified causing asphyxiation, subsequent encounter
[2018-01-27] MEDS ORDERED: *HR* Propofol 200 MG/20 ML VIAL IVP ONE (09:50)
[2018-01-27] MEDS ORDERED: Lidocaine -MPF 2% 2 ML VIAL ONE (09:51)
[2018-01-27] MEDS ORDERED: Ondansetron 4 MG/2 ML VIAL ONE (09:51)
[2018-01-27] MEDS ORDERED: *HR* Midazolam HCl 2 MG/2 ML VIAL ONE (10:16)
[2018-01-27] MEDS ORDERED: *HR* FentaNYL (PF) 100 MCG/2 ML VIAL ONE (10:16)
[2018-01-27] MEDS ORDERED: Albuterol 2.5 MG/3 ML NEBULIZER IH ONE (10:18)
[2018-01-27] MEDS ORDERED: *HR* OxyCODONE Immed Rel 5 MG TABLET PO PRN (10:18)
[2018-01-27] MEDS ORDERED: *HR* Metoprolol 5 MG/5 ML VIAL IVP PRN (10:18)
[2018-01-27] MEDS ORDERED: *HR* Promethazine 25 MG/ML VIAL IVP PRN (10:18)
[2018-01-27] MEDS ORDERED: Dexamethasone 4 MG/ML VIAL ONE (10:24)
[2018-01-27] MEDS ORDERED: *HR* EPINEPHrine 1 MG/10 ML SYRINGE ONE (11:23)
--- NOTE | 2018-01-27 11:23 | Discharge Summary ---
<Sourav Puente - Last Filed: 01/27/18 18:04> - NOTES TO OUTPATIENT PROVIDER Notes to Outpatient Provider: - f/u with pulmonology in 2 weeks as an out- patient Orders not resulted at time of discharge: Pending orders 01/24/18 17:45 Culture,Blood [BC] Stat 01/25/18 11:46 Culture,Respiratory [RM] Routine 01/25/18 11:47 AFB Culture, Respiratory [TB] Routine AFB Smear [TB] Routine Culture,Respiratory [RM] Routine Fungal Culture [MYC] Routine Cytology [PTH] Routine 01/25/18 11:48 AFB Culture, Respiratory [TB] Routine AFB Smear [TB] Routine Fungal Culture [MYC] Routine 01/25/18 11:49 Surgical Pathology [PTH] Routine Date of Encounter: 01/27/18 Time of Encounter: 10:00 - Discharge Diagnosis (1) PNA (pneumonia) Priority: Secondary Status: Acute Qualifiers: Pneumonia type: aspiration pneumonia Aspiration pneumonia type: unspecified Laterality: right Lung location: lower lobe of lung Qualified Code(s): J69.0 - Pneumonitis due to inhalation of food and vomit (2) HTN (hypertension) Priority: Secondary Status: Chronic Qualifiers: Hypertension type: essential hypertension Qualified Code(s): I10 - Essential (primary) hypertension (3) Sepsis Priority: Primary Status: Resolved Qualifiers: Sepsis type: sepsis due to unspecified organism Qualified Code(s): A41.9 - Sepsis, unspecified organism (4) Morbid obesity with BMI of 40.0-44.9, adult Priority: Secondary Status: Chronic (5) Foreign body aspiration Priority: Secondary Status: Suspected Qualifiers: Encounter type: subsequent encounter Qualified Code(s): T17.900D - Unspecified foreign body in respiratory tract, part unspecified causing asphyxiation, subsequent encounter (6) DVT prophylaxis Priority: Secondary Status: Acute Hospital course: Ms. Lopez is a 52 year old female with a PMHx of HTN who was admitted to the floor after an incidental finding on her Chest CT of post-obstructive PNA, with concerns for foreign body aspiration about 5 weeks ago. Patient endorses it all started when she accidentally aspirated popcorn while looking up at a shelf at home. Patient had no symptoms for few weeks, however after that she began to have progressive increasing productive cough. Patient denies any hemoptysis associated with her cough. She denied any history of GERD or any cardiac symptoms like CHF/DE. She had tried 2 rounds of antibiotics prior to this admission. During her course of her hospital stay, patient underwent bronchoscopy twice. There was evidence of mucous plugging in the airway in the right lower lobe. Her BAL, lung biopsy results are pending. Patient is being sent home on 2 weeks of Prednisone taper for 2 weeks , 2 weeks of Augmentin. She will follow up with Pulmonology 2 weeks after her discharge. - Time Spent with Patient Total time spent providing and/or coordinating discharge services: - Discharge Medications Prescriptions: Amoxicillin/Clavulanate [Augmentin] 875 mg PO BIDWM 14 Days #28 tablet RX: PredniSONE [Deltasone] See Taper PO DAILY #45 tablet Home Medications: RX: Atenolol 50 mg PO BID 02/05/15 [History] RX: Amlodipine Besylate 5 mg PO BID 01/25/18 [History] Amoxicillin/Clavulanate [Augmentin] 875 mg PO BIDWM 14 Days #28 tablet 01/27/18 [Rx] RX: PredniSONE [Deltasone] See Taper PO DAILY #45 tablet 01/27/18 [Rx] Allergies/Adverse Reactions: Allergy/AdvReac Type Severity Reaction Status Date / Time No Known Allergies Allergy Verified 01/25/18 08:22 Date of admission: 01/24/18 18:19 Primary care physician: Arcenio Segovia Consults: 01/25/18 08:01 Consult to Pulmonology [CONS] Routine Consulting Provider: [facility] Nicole Reason for Consult: ASPIRATION PN Call Completed: Yes - Constitutional Vitals: Temp Pulse Resp BP Pulse Ox 97.6 F 69 16 162/79 96 01/27/18 10:08 01/27/18 10:08 01/27/18 10:08 01/27/18 10:08 01/27/18 10:08 Exam: General: Alert and oriented. Skin:Normal color, no rash, no lesions. HEENT:Pupils equal, round and reactive. Cardiovascular:Normal S1 & S2, no rubs, murmurs or gallops. No JVD. Pulse regular. Lungs:decreased breath sounds on the Right lung base, no rales or ronchi Abdomen:Soft, no rigidity. Tender to palpation x4 quadrants. No rebound tenderness. Normal bowel sounds x4 quadrants. Extremities:No deformity, no edema or tenderness, no joint swelling or clubbing. Neurological:Normal cognition and motor skills. Pulses:Carotid and radial pulses normal +2. Rest of the physical exam is non contributory. - Patient Status Disposition: Home, Self-Care Overall status at discharge: patient is progressing back to baseline - Discharge Instructions Instructions: Prednisone (By mouth), Amoxicillin/Clavulanate Potassium (By mouth), Pneumonia (DC) Follow Up With: Qing Benson DO [Primary Care Provider] - (Appointment has been requested. Our offices will call you with an appointment time and date) Mir Palma MD [Partnered Physician] - (in 2 weeks) Additional Instructions: - take prednisone 50mg once /daily for the 3 days, 40 mg once /day for the next 3 days, 30 mg once /day for the next 3 days, 20mg once/day for the next 3 days, 10mg once/day for the last 3 days. - take Abx Augmentin 875 mg BID - f/u with pulonology as an outpatient - go the ED if cough gets worse, or if noticing symptoms of fever, chills, SOB, chest pain. <Ravin Brantley - Last Filed: 01/27/18 18:26> Orders not resulted at time of discharge: Pending orders 01/24/18 17:45 Culture,Blood [BC] Stat 01/25/18 11:46 Culture,Respiratory [RM] Routine 01/25/18 11:47 AFB Culture, Respiratory [TB] Routine AFB Smear [TB] Routine Culture,Respiratory [RM] Routine Fungal Culture [MYC] Routine 01/25/18 11:48 AFB Culture, Respiratory [TB] Routine AFB Smear [TB] Routine Fungal Culture [MYC] Routine 01/27/18 11:10 Culture,Respiratory [RM] Routine Resp.Virus Panel,Body Fl Routine Cytology [PTH] Routine Date of Encounter: 01/27/18 - Discharge Diagnosis (1) PNA (pneumonia) Priority: Primary Status: Acute Qualifiers: Pneumonia type: aspiration pneumonia Aspiration pneumonia type: unspecified Laterality: right Lung location: lower lobe of lung Qualified Code(s): J69.0 - Pneumonitis due to inhalation of food and vomit (2) HTN (hypertension) Status: Chronic Qualifiers: Hypertension type: essential hypertension Qualified Code(s): I10 - Essential (primary) hypertension (3) Sepsis Priority: Secondary Status: Resolved Qualifiers: Sepsis type: sepsis due to unspecified organism Qualified Code(s): A41.9 - Sepsis, unspecified organism (4) Morbid obesity with BMI of 40.0-44.9, adult Status: Chronic (5) Foreign body aspiration Status: Suspected Qualifiers: Encounter type: subsequent encounter Qualified Code(s): T17.900D - Unspecified foreign body in respiratory tract, part unspecified causing asphyxiation, subsequent encounter (6) DVT prophylaxis Status: Acute Hospital course: Ms. Lopez is a 52 year old female - Time Spent with Patient Total time spent providing and/or coordinating discharge services: 20min Date of admission: 01/24/18 18:19 Primary care physician: Arcenio Segovia Consults: 01/25/18 08:01 Consult to Pulmonology [CONS] Routine Consulting Provider: [facility] Pearblossom Reason for Consult: ASPIRATION PN Call Completed: Yes - Constitutional Vitals: Temp Pulse Resp BP Pulse Ox 98.4 F 54 16 127/72 96 01/27/18 11:45 01/27/18 12:52 01/27/18 12:52 01/27/18 12:52 01/27/18 12:52 - Attending Attestation I examined this patient and my medical decision-[facility]. I agree with the documented findings, disposition and treatment plan as described except to the extent set forth below. Ms Lopez has been admitted for pneumonia which was post obstructive. She had two bronchoscopies. She has tolerated abx and is now afebrile. She will be discharged home on PO abx and steroid taper. Exam alert Comfortable Mucus membranes dry No wheeze Not tachy Plan D/C home today.
--- NOTE | 2018-01-27 11:38 | Anesthesia Evaluation Post Op ---
Date of Encounter: 01/27/18 Time of Encounter: 11:37 - Vital Signs Vital Signs: Vital Signs/O2 Sat, Most Current Temp Pulse Resp BP Pulse Ox 98.4 F 62 16 135/80 96 01/27/18 11:35 01/27/18 11:35 01/27/18 11:35 01/27/18 11:35 01/27/18 11:35 - Lungs Lungs: Clear Ascult./Percussion - Airway Airway: Non-obstructed - Cardiovascular Regular Rate - Mental Status Mental Status: Alert & Oriented, Answers Appropriately - Pain Pain Scale: 0 Pain Scale used: Numeric (1 - 10) - Nausea Vomiting Nausea Vomiting: Not Present - Hydration Hydration: Ice chips, Has not voided - Discharge PostOp Status: Transfer Patient to floor
[2018-01-27 12:52] VITALS: BP 127/72
== END 2018-01-27 13:50 | disposition home or self-care (01) | DRG 871 ==
LOC: 3BNU → SUATTDRO 18:19
PROVIDERS: ADMIT Internal Medicine; ATTEND Internal Medicine
PROC: ENDOBBX (2018-01-25 11:00)
PROC: ENDOBRF (2018-01-27 10:00)